=== PATIENT | male | born 1995 | race African-American/Black ===

== ENCOUNTER 2018-12-15 18:27 | Emergency (ER) | payer MEDICAID ==
[~2018-12-15] VITALS: Ht 152.4 cm; Wt 62.6 kg
[2018-12-15] MEDS ORDERED: KETOROLAC TROMETH 30 MG/ML 1ML VIAL IV ONE (19:00)
[2018-12-15 20:06] VITALS: BP 136/94
[2018-12-15] MEDS ORDERED: BACITRACIN TOP OINT 1 UD PKG TOP ONE (20:15)
== END 2018-12-15 21:22 | disposition home or self-care (01) ==
LOC: ER 18:27
DX: S13.9XXA Sprain of joints and ligaments of unspecified parts of neck, initial encounter (principal); S80.11XA Contusion of right lower leg, initial encounter; S40.022A Contusion of left upper arm, initial encounter; S50.312A Abrasion of left elbow, initial encounter; S09.90XA Unspecified injury of head, initial encounter; M54.5 Low back pain; V03.90XA Pedestrian on foot injured in collision with car, pick-up truck or van, unspecified whether traffic or nontraffic accident, initial encounter; Y93.89 Activity, other specified; Y99.8 Other external cause status; Y92.410 Unspecified street and highway as the place of occurrence of the external cause
CPT/HCPCS: 70450; 72100; 72125; 73590; 96374; 99284; J1885

== ENCOUNTER 2019-01-11 12:29 | Emergency (ER) | payer MEDICAID ==
[~2019-01-11] VITALS: Ht 149.9 cm; Wt 54.4 kg
[2019-01-11] MEDS ORDERED: METHOCARBAMOL 500 MG TAB PO ONE (16:00)
[2019-01-11] MEDS ORDERED: IBUPROFEN 600 MG TAB PO ONE (16:15)
[2019-01-11 17:50] VITALS: BP 110/68
== END 2019-01-11 18:46 | disposition home or self-care (01) ==
LOC: ER 12:36
DX: M54.5 Low back pain (principal); M79.661 Pain in right lower leg
CPT/HCPCS: 93971

== ENCOUNTER 2020-03-05 18:30 | Emergency (ER) | payer MEDICAID ==
[~2020-03-05] VITALS: Ht 175.3 cm; Wt 47.6 kg
[2020-03-05] MEDS ORDERED: SODIUM CHLORIDE 0.9% 1,000 ML IV ONE (19:15)
[2020-03-05] MEDS ORDERED: MORPHINE SULFATE 4 MG/ML SYR/VIAL IV ONE (21:30)
[2020-03-05] MEDS ORDERED: SODIUM CHLORIDE 0.9% 500 ML IV ONE (21:30)
[2020-03-05] MEDS ORDERED: ONDANSETRON HCL 4 MG/2 ML VIAL IV ONE (21:30)
[2020-03-05 22:31] LABS: Basophils # (auto) 0.1 10 ^3/uL (0-0.2); Eosinophils # (auto) 0 10 ^3/uL (0-0.8); Eosinophils % (auto) 0.5 % (0.0-7.0); Hematocrit 48.3 % (41.0-53.0); Hemoglobin 16.5 g/dL (13.5-17.5); Lymphocytes % (auto) 17.6 % (10.0-50.0); Mean Corpuscular Hemoglobin 32.7 pg (28.0-32.0); Mean Corpuscular Volume 96.1 fL (80.0-100.0); Monocytes # (auto) 0.4 10 ^3/uL (0-1.3); Monocytes % (auto) 7.1 % (0.0-12.0); Neutrophils # (auto) 4.3 10 ^3/uL (1.6-8.6); Neutrophils % (auto) 73.8 % (37.0-80.0); Platelet Count (auto) 181 10^3/uL (140-450); Red Blood Cells 5.03 10^6/uL (4.5-5.90); Red Cell Distribution Width 12.7 % (11.8-14.3); White Blood Cell 5.8 10^3/uL (4.4-10.8)
[2020-03-05 22:50] LABS: Albumin 3.9 g/dL (3.4-5.0); Lipase 128 U/L (73-393)
[2020-03-05 22:53] LABS: Alanine Aminotransferase 32 U/L (16-61); Alkaline Phosphatase 77 U/L (45-117); Aspartate Aminotransferase 28 U/L (15-37); Total Protein 8.1 g/dL (6.4-8.2)
[2020-03-05 23:03] LABS: Anion Gap 7 (5-15); BUN/Creatinine Ratio 16.9; Blood Urea Nitrogen 11 mg/dL (7-18); Calcium 8.7 mg/dL (8.5-10.1); Carbon Dioxide 22 mmol/L (21-32); Chloride 108 mmol/L (98-107); GFR African American 192 mL/min; GFR Non-African American 159 mL/min; Glucose 73 mg/dL (74-106); Potassium 4.1 mmol/L (3.5-5.1); Sodium 137 mmol/L (136-145)
[2020-03-06] MEDS ORDERED: MORPHINE SULFATE 4 MG/ML SYR/VIAL IV ONE (01:45)
[2020-03-06] MEDS ORDERED: ONDANSETRON HCL 4 MG/2 ML VIAL IV ONE (01:45)
[2020-03-06] MEDS ORDERED: MAGNESIUM CITRATE SOLUTION 300 ML BTL PO ONE (03:15)
[2020-03-06 03:30] VITALS: BP 111/71
== END 2020-03-06 03:55 | disposition home or self-care (01) ==
LOC: EDBD 18:30 → ER 18:33
DX: K59.00 Constipation, unspecified (principal); R20.0 Anesthesia of skin; K56.7 Ileus, unspecified; Z20.822 Contact with and (suspected) exposure to COVID-19
CPT/HCPCS: 36415; 74176; 80053; 83605; 83690; 85025; 87426; 96361; 96374; 96375; 96376; 99285; C9803; J2270; J2405; J7030; U0003